=== PATIENT | female | born 1980 | race Caucasian/White ===

== ENCOUNTER → 2021-03-24 | Outpatient (CLI) | payer OTHER ==
--- NOTE | 2021-03-28 17:33 | SLEEP ---
DATE OF STUDY: 03/24/2021 SLEEP STUDY ATTENDING PHYSICIAN: Ted Renteria DO The patient is a 40-year-old who weighs 186 pounds with a BMI of 30. The patient underwent diagnostic sleep study performed at [facility]. During the night study, the patient spent 538 minutes in bed and slept for 504 minutes with a sleep efficiency of 94%. Sleep latency was 6 minutes with a REM latency of 135 minutes. Sleep architecture showed normal stage 1 sleep, increased stage 2 sleep, normal slow wave and normal REM sleep. During the night study, the patient had 1 obstructive apnea, no mixed apneas, 8 central apneas and no hypopneas. The patient's AHI was 1 per hour with a supine AHI of 1 per hour and a REM AHI of 3 per hour. No significant PLMs seen. Nocturnal oximetry study revealed no significant desaturation of less than 92%. EKG monitoring revealed an average heart rate of 66 beats per minute. No sustained arrhythmias observed. Due to low AHI, the patient did not met the split night criteria for CPAP initiation. IMPRESSION: 1. No clinically significant sleep disorder breathing. The patient's AHI for the entire night was 1 per hour. 2. No significant nocturnal hypoxia. 3. No significant periodic limb movements. RECOMMENDATIONS: 1. The patient did not meet the split night criteria for CPAP initiation due to low AHI. 2. Weight loss is advised. 3. Avoid HSE ADVISOR depressants. 4. Cautioned regarding driving when sleepy or sleep deprived. GINA DR: Ant TID: [id number] CC: TERRELL RENTERIA DO
== END ==
LOC: SLPLAB 19:01
PROVIDERS: ATTEND Otolaryngology
DX: R06.83 Snoring (principal)
CPT/HCPCS: 95810

== ENCOUNTER 2021-04-06 05:57 | Day surgery (SDC) | payer OTHER ==
[~2021-04-06] VITALS: Ht 168.9 cm; Wt 84.0 kg
[2021-04-06] MEDS ORDERED: PROCHLORPERAZINE 10 MG/2 ML VIAL. IVP PRN (06:00)
[2021-04-06] MEDS ORDERED: fentaNYL PF VIAL 100 MCG/2 ML VIAL IVP PRN ×2 (06:00)
[2021-04-06] MEDS ORDERED: HYDROmorphone 2 MG/ML INJ. IVP PRN (06:00)
[2021-04-06] MEDS ORDERED: MORPHINE SULFATE 2 MG/ML INJ. IVP PRN (06:00)
[2021-04-06] MEDS ORDERED: IV RINGERS,LACTATED 1000ML 1,000 ML IV SCH (06:00)
[2021-04-06 06:19] VITALS: BP 110/77
[2021-04-06] MEDS ORDERED: CETI10TA74 PO (06:28)
[2021-04-06] MEDS ORDERED: CHOL500050 PO (06:28)
[2021-04-06] MEDS ORDERED: PROPOFOL 10 MG/ML (20ML) VIAL. IV ONE (06:53)
[2021-04-06] MEDS ORDERED: fentaNYL PF VIAL 100 MCG/2 ML VIAL ONE (06:53)
[2021-04-06] MEDS ORDERED: LIDOCAINE 1% Multi-Dose 20 ML VIAL. ONE (07:04)
[2021-04-06] MEDS ORDERED: BUPIVACAINE MPF 0.5% 30 ML VIAL. ONE (07:04)
--- NOTE | 2021-04-06 07:21 | PDOC1 ---
History and Physical Date of Admission Date of Admission DATE: 04/06/21 TIME: 07:12 Identification/Chief Complaint Chief Complaint Right 4th and 5th toe pain Source Source: Patient History of Present Illness History of Present Illness Ms Dc is a 40yo female with PMHx vit d insufficiency, right foot hammertoe who comes in to outpatient surgery c/o worsening right lateral foot pain over the course of the past 21 years. Notes a callous on 4th and 5th toes and has pain 5/10 at the worst affecting her ability to exercise. She has previously had 2 surgeries on her left foot and 1 on the 4th toe on the right. She follows at [facility] for primary care and other than being more tired recently has no other complaints. She is UTD on vaccines including COVID 19 booster, is a mother of 4 healthy children, non-smoker, does not use illicit drugs and has no abnormal preoperative testing. Plan for 4th and 5th right toe arthroplasty today. Past Medical History Cardiovascular: No pertinent hx Past Surgical History Past Surgical History Left foot arthroplasty x2 Right 4th toe arthroplasty Cholecystectomy C section x2 Tubal ligation [place] tooth extraction Past Surgical History: Cholecystectomy, Tubal Ligation Family History Family History: Cancer (Colon - father, Lung - mother) Social History Smoke: No ALCOHOL: none Drugs: None Current Medications Current Medications Current Medications Fentanyl Citrate (Fentanyl 2ml Vial) 25 mcg PRN Q5MIN PRN IVP MILD PAIN 1-3; Start 04/06/21 at 06:00; Stop 04/07/21 at 05:59 Fentanyl Citrate (Fentanyl 2ml Vial) 50 mcg PRN Q5MIN PRN IVP MODERATE PAIN 4- 6; Start 04/06/21 at 06:00; Stop 04/07/21 at 05:59 Morphine Sulfate (Morphine Sulfate) 1 mg PRN Q10MIN PRN IVP SEVERE PAIN 7-10; Start 04/06/21 at 06:00; Stop 04/07/21 at 05:59 Ringer's Solution 1,000 ml @ 30 mls/hr Q24H IV Last administered on 04/06/21at 06:30; Start 04/06/21 at 06:00; Stop 04/06/21 at 17:59 Hydromorphone HCl (Dilaudid) 0.5 mg PRN Q10MIN PRN IVP SEVERE PAIN 7-10, 2nd CHOICE; Start 04/06/21 at 06:00; Stop 04/07/21 at 05:59 Prochlorperazine Edisylate (Compazine) 5 mg PACU PRN PRN IVP NAUSEA, MRX1; Start 04/06/21 at 06:00; Stop 04/07/21 at 05:59 Cefazolin Sodium/ Dextrose 50 ml @ 100 mls/hr 1X PREOP PRN IV PRIOR TO PROCEDURE; Start 04/06/21 at 06:00; Stop 04/06/21 at 18:00 Propofol (Diprivan) 200 mg STK-MED ONCE IV ; Start 04/06/21 at 06:53; Stop 04/06/21 at 06:53; Status DC Fentanyl Citrate (Fentanyl 2ml Vial) 100 mcg STK-MED ONCE .ROUTE ; Start 04/06/21 at 06:53; Stop 04/06/21 at 06:54; Status DC Lidocaine HCl (Lidocaine 1% 20ml Vial) 20 ml STK-MED ONCE .ROUTE ; Start 04/06/21 at 07:04; Stop 04/06/21 at 07:04; Status DC Bupivacaine HCl (Sensorcaine Mpf 0.5%) 30 ml STK-MED ONCE .ROUTE ; Start 04/06/21 at 07:04; Stop 04/06/21 at 07:04; Status DC Active Scripts Active Reported Zyrtec (Cetirizine Hcl) 10 Mg Tablet 1 Tab PO DAILY Vitamin D3 (Cholecalciferol (Vitamin D3)) 1,250 Mcg Capsule 50,000 Mcg PO WEEKLY Allergies Allergies: Coded Allergies: No Known Drug Allergies (Unverified , 04/05/21) ROS General: YES: Fatigue, Malaise; No: Chills, Night Sweats, Appetite, Other PSYCHOLOGICAL ROS: YES: Sleep disturbances; No: Anxiety, Behavioral Disorder, Concentration difficultie, Decreased libido, Depression, Disorientation, Hallucinations, Hostility, Irritablity, Memory difficulties, Mood Swings, Obsessive thoughts, Physical abuse, Sexual abuse, Suicidal ideation, Other Eyes: No Blurry vision, No Decreased vision, No Double vision, No Dry eyes, No Excessive tearing, No Eye Pain, No Itchy Eyes, No Loss of vision, No Photophobia, No Scotomata, No Uses contacts, No Uses glasses, No Other HEENT: No: Heacaches, Visual Changes, Hearing change, Nasal congestion, Nasal discharge, Oral lesions, Sinus pain, Sore Throat, Epistaxis, Sneezing, Snoring, Tinnitus, Vertigo, Vocal changes, Other ALLERGY AND IMMUNOLOGY: No: Hives, Insect Bite Sensitivity, Itchy/Watery Eyes, Nasal Congestion, Post Nasal Drip, Seasonal Allergies, Other Hematological and Lymphatic: No: Bleeding Problems, Blood Clots, Blood Transfusions, Brusing, Night Sweats, Pallor, Swollen Lymph Nodes, Other ENDOCRINE: No: Breast Changes, Galactorrhea, Hair Pattern Changes, Hot Flashes, Malaise/lethargy, Mood Swings, Palpitations, Polydipsia/polyuria, Skin Changes, Temperature Intolerance, Unexpected Weight Changes, Other Breast: No New/Changing Breast Lumps, No Nipple changes, No Nipple discharge, No Other Respiratory: No: Cough, Hemoptysis, Orthopnea, Pleuritic Pain, Shortness of breath, SOB with excertion, Sputum Changes, Stridor, Tachypnea, Wheezing, Other Cardiovascular: No Chest Pain, No Palpitations, No Orthopnea, No Paroxysmal Noc. Dyspnea, No Edema, No Lt Headedness, No Other Gastrointestinal: No Nausea, No Vomiting, No Abdominal Pain, No Diarrhea, No Constipation, No Melena, No Hematochezia, No Other Genitourinary: No Dysuria, No Frequency, No Incontinence, No Hematuria, No Retention, No Discharge, No Urgency, No Pain, No Flank Pain, No Other, No , No , No , No , No , No , No Musculoskeletal: No Gait Disturbance, No Joint Pain, No Joint Stiffness, No Joint Swelling, No Muscle Pain, No Muscular Weakness, No Pain In:, No Swelling In:, No Other Neurological: No Behavorial Changes, No Bowel/Bladder ControlChng, No Confusion, No Dizziness, No Gait Disturbance, No Headaches, No Impaired Coord/balance, No Memory Loss, No Numbness/Tingling, No Seizures, No Speech Problems, No Tremors, No Visual Changes, No Weakness, No Other Skin: No Dry Skin, No Eczema, No Hair Changes, No Lumps, No Mole Changes, No Mottling, No Nail Changes, No Pruritus, No Rash, No Skin Lesion Changes, No Other, No Acne Physical Exam General: Alert, Oriented X3, Cooperative, No acute distress HEENT: Atraumatic, PERRLA, EOMI, Mucous membr. moist/pink Lungs: Clear to auscultation, Normal air movement Heart: S1S2, RRR, no thrills, no rubs, no gallops, no murmurs Abdomen: Normal bowel sounds, Soft, No tenderness, No hepatosplenomegaly, No masses Extremities: No clubbing, No cyanosis, No edema, Normal pulses, No tenderness/swelling Skin: No rashes, No breakdown, No significant lesion Neuro: Normal gait, Normal speech, Strength at 5/5 X4 ext, Normal tone, Sensation intact, Cranial nerves 3-12 NL, Reflexes 2+ Psych/Mental Status: Mental status NL, Mood NL Vitals Vitals Vital Signs Date Time Temp Pulse Resp B/P (MAP) Pulse Ox O2 Delivery O2 Flow Rate FiO2 04/06/21 06:24 97.4 61 18 110/77 98 Room Air 97.4 Labs Labs Laboratory Tests Test 04/06/21 06:13 Bedside Urine HCG, Qualitative Hcg negative (Negative) Laboratory Tests Test 04/06/21 06:13 Bedside Urine HCG, Qualitative Hcg negative (Negative) VTE Prophylaxis Ordered VTE Prophylaxis Devices: Yes VTE Pharmacological Prophylaxi: No Assessment/Plan Assessment/Plan A/P: Right hammertoe - with 4th and 5th toe callous. No further testing prior to planned surgery today Vitamin D insufficiency - cont supplementation Fatigue - still in work up FEN - NPO PPX - SCDs FULL CODE Dispo - outpatient surgery Call for any questions or if admission is necessitated. Justifications for Admission Other Justification JL JHAVERI MD Apr 06, 2021 07:21
[2021-04-06] MEDS ORDERED: LIDOCAINE 1% PF 5 ML VIAL. ONE (07:56)
[2021-04-06] MEDS ORDERED: ONDANSETRON PF 4 MG/2 ML VIAL. ONE (07:56)
[2021-04-06] MEDS ORDERED: DEXAMETHASONE SOD PHOS 4 MG/ML VIAL ONE (07:56)
[2021-04-06] MEDS ORDERED: SEVOFLURANE 31 TO 60 MINUTES. IH ONE (08:30)
--- NOTE | 2021-04-06 09:07 | PDOC4 ---
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, Post-Op Diagnosis: Same as above Procedure Performed: Right fourth DIPJ arthroplasty, percutaneous flexor tenotomy at the level of fourth DIPJ Right fifth DIPJ flexor tenotomy, PIPJ capsulotomy Surgeon: Hima Navarro DPM Anesthesia Type: General with LMA Blood Loss: 5 cc Specimans Obtained: None Findings: Mild osseous remodeling/prominence to the lateral aspect of fourth DIPJ, slightly malunited PIPJ of the right fourth digit from a prior arthrodesis procedure After flexor tenotomy, semielliptical skin excisions, and medial capsulotomy, right fifth digit was reduced to anatomical alignment spontaneously After flexor tenotomy, semielliptical skin excisions, DIPJ arthroplasty, the right fourth digit was reduced to anatomical alignment spontaneously Complications: None Operative Note: Under mild sedation, patient was brought into the operating table and placed on the operating table in the supine position. A formal timeout was performed to confirm patient's identity, procedure and procedure site. Preoperative IV antibiotics, and general anesthesia was induced. A well-padded high ankle tourniquet was placed on the right lower extremity. Following alcohol skin prep, 5 cc of 0.25% Marcaine plain was infiltrated to the proximal fourth and fifth metatarsals. The right lower extremity was then scrubbed, prepped and draped using aseptic techniques. The right lower extremity was exsanguinated with pressure set at 250 millimercury. An oblique, semielliptical skin incisions were made overlying the fourth DIPJ. The incision was made full-thickness and excessive skin was removed to expose the underlying DIPJ capsule. The incision was carried deep with care to protect and retract all neurovascular bundles. A transverse incision was made overlying the DIPJ. The collateral ligaments were released and the head of the middle phalanx was visualized. A sagittal saw was used to excise the head of the middle phalanx including the exostosis at the lateral aspect. Simulated weightbearing remarked slight residual adductovarus deformity. Then using a [place] blade, the flexor tendon was released at the level of the plantar DIPJ percutaneously. At this time, the digit was well aligned without any corrective force. The surgical site was irrigated with copious saline solution. A 0.062 inch K wire was introduced in a retrograde fashion traversing the DIPJ and introduced to the distal fourth metatarsal head while the digit was held in a parallel and rectus position to the neighboring digits. Intraoperative x-ray remarked adequate digital alignment at the level of DIPJ and MTPJ. The K wire was intraosseous and noted in the adequate and satisfactory position. The EDL was repaired with 3-0 Vicryl. The skin incision was repaired with 4-0 nylon. The pin was cut and bent away from the skin. The distal aspect the pin was capped. The attention was directed to the right fifth digit at the level of the PIPJ. Again, 2 semielliptical skin incisions, full-thickness was made overlying the PIPJ. The excessive skin was excised. Then a flexor tenotomy was carried out at the level of the DIPJ with a [place] blade plantarly. Spontaneous reduction of the adductovarus deformity was noted. Then a medial capsulotomy across the PIPJ was performed with care to protect and retract all neurovascular bundles. At this time, we noted adequate digital alignment parallel to the fourth digit without forceful correction. Then the decision was made not to excise any bone off the PIPJ especially when the fifth digit is already short to begin with. The surgical site was irrigated with copious saline solutions. The EDL was r epaired with 4-0 Vicryl. The skin was repaired with 4-0 nylon. With simulated for for loading, we noted parallel and rectus fourth and fifth digits. The tourniquet was deflated at this time and adequate digital perfusion was noted across the fourth and fifth digits at the procedure sites. The surgical sites were dressed with Xeroform, 4 x 4, Kerlix, and Adria. Patient tolerated procedure and anesthesia well with vital signs stable and neurovascular status intact. Patient was then transferred to PACU for continuous recovery, pending right foot x-ray 3 view. The right foot is to be protected in a surgical shoe. Patient to nonweightbearing for 2 weeks and then she will follow-up with me in the clinic. HIMA NAVARRO DPM Apr 06, 2021 09:07
[2021-04-06] MEDS ORDERED: oxyCODONE/APAP 5/325 1 TAB TABLET PO ONE (09:15)
[2021-04-06] MEDS ORDERED: ACETAMINOPHEN 325 MG TABLET. PO ONE (09:15)
[2021-04-06] MEDS ORDERED: GABAPENTIN 100 MG CAPSULE. PO ONE (09:15)
[2021-04-06] MEDS ORDERED: GABA300C18 PO (09:50)
[2021-04-06] MEDS ORDERED: TRAM50TA PO (09:50)
[2021-04-06 10:02] VITALS: BP 109/73
--- NOTE | 2021-04-07 12:33 | RAD ---
Right foot 3 views: Reason for examination: Postop. No previous exams available for comparison. A metal pin appears to be present in the fourth digit from the distal phalanx to the distal end of th e fourth metatarsal bone. There appears be fusion of the proximal and middle phalanges of the fourth digit. There does appear to be some periosteal reaction present around the midshaft of the proximal p halanx. The remaining right foot shows no evidence of fracture or dislocation. The bone density is no rmal. No abnormal periosteal reaction is seen. Remaining joint spaces are maintained. IMPRESSION: Pin present in the fourth toe with apparent fusion of the proximal and middle phalanges with some per iosteal reaction seen at the midshaft of the fused bone. Electronically signed by: Brianna Viveros MD (04/07/2021 12:30 PM) [id number]
== END 2021-04-06 13:05 | disposition home or self-care (01) ==
LOC: SURG 05:57 → EDUNIT# 07:30 → SURG 13:05
PROVIDERS: ATTEND Podiatrist
DX: M20.41 Other hammer toe(s) (acquired), right foot (principal); G47.30 Sleep apnea, unspecified; M19.90 Unspecified osteoarthritis, unspecified site; Z98.51 Tubal ligation status; Z98.890 Other specified postprocedural states; Z79.899 Other long term (current) drug therapy; Z90.49 Acquired absence of other specified parts of digestive tract; Z80.0 Family history of malignant neoplasm of digestive organs
CPT/HCPCS: 28285; 73630; 81025; A4930; A6222; A6253; A6402; A6449; A6450; J0690; J1100; J2405; J2704; J3010; J3490; A6443